=== PATIENT | female | born 1990 | race Two or more races ===

== ENCOUNTER 2024-11-08 06:23 | Emergency (ER) | payer MEDICAID, SELFPAY ==
[2024-11-08 06:24] VITALS: BMI 39.3
[2024-11-08 06:57] VITALS: BP 158/80; PULSE 69; RESP 17; TEMP 37; O2SAT 99
--- NOTE | 2024-11-08 07:14 | XR_ITS ---
Examination: Abdomen sonogram, Limited Date and time of exam: November 08, 2024 0727 hours INDICATIONS: Onset right upper abdominal pain and vomiting today, history cholelithiasis Technique: Real-time mendoza scale transabdominal sonographic images of the upper abdomen obtained. Findings: Multiple gallstones Gallbladder wall 0.29 cm no edema Common bile duct 0.4 cm Pancreatic head 3.6 cm Liver 15.6 cm fatty infiltration no focal liver lesions Normal hepatopedal portal venous flow Patent IVC IMPRESSION: Cholelithiasis, borderline gallbladder wall thickening No common bile duct stones Pancreatic head prominent, clinical correlation advised As clinically warranted, MRCP follow-up would exclude cholecystitis as well as pancreatitis
[2024-11-08] MEDS: ONDANSETRON ODT 4 MG TABRAP PO (07:21)
[2024-11-08] MEDS: HYDROcodone/APAP 5/325 TABLET 1 TAB PO (07:21)
--- NOTE | 2024-11-08 08:07 | PD.EDRME ---
Rapid Medical Screening Exam RME Arrival date/time: 11/08/24 06:23 This is a 34-year-old female presents to the emergency department with complaints of right upper quadrant abdominal pain x 2 days. + Nausea vomiting I have greeted and performed a focused initial assessment of this patient. Initial appropriate labs ordered at this time. A comprehensive ED assessment and evaluation of the patient and analysis of all test and completion of medical decision making process will be conducted by additional ED provider. Chief Complaint: Abdominal Pain Time Seen by Provider: 11/08/24 06:33 Vital signs: Vital Signs Temperature 98.6 F 11/08/24 06:57 Pulse Rate 69 11/08/24 06:57 Respiratory Rate 17 11/08/24 06:57 Blood Pressure 158/80 H 11/08/24 06:57 Pulse Oximetry (%) 99 11/08/24 06:57 Oxygen Delivery Method Room Air 11/08/24 06:57
[2024-11-08 08:34] LABS: Alanine Aminotransferase 19 U/L (10-49); Albumin, Serum 4.9 gm/dL (3.5-5.0); Albumin/Globulin Ratio 1.6 (1.2-2.2); Alkaline Phosphatase 92 U/L (46-116); Anion Gap 9 (7-16); Aspartate Amino Transferase 14 U/L (0-34); BUN/Creatinine Ratio 19 Ratio (12-20); Bilirubin,Total 0.7 mg/dL (0.3-1.2); Blood Urea Nitrogen 13 mg/dL (9-23); Calcium 9.4 mg/dL (8.3-10.6); Calcium (Corrected) 9.4 mg/dL (8.5-10.1); Carbon Dioxide 23.9 mMol/L (20.0-31.0); Chloride 105 mMol/L (98-107); Creatinine (Component) 0.7 mg/dL (0.6-1.3); Estimated Creatinine Clearance 121.1 mL/min (>60); Glucose 121 mg/dL (74-106); Lipase 55 U/L (12-53); Osmolality,Calculated 276 (275-295); Sodium 138 mMol/L (136-145); Total Protein 7.9 gm/dL (5.7-8.2); eGFR > 60 See Note
[2024-11-08 08:35] LABS: Basophils % (Auto) 0 % (0-2.5); Eosinophils % (Auto) 0 % (0-10); Hematocrit 40.8 % (36.0-46.0); Immature Granulocytes % (Auto) 0 % (0-0); Immature Granulocytes Auto 0.05 Thou/mm3 (0.00-0.00); Lymphocytes # (Auto) 1.5 Thou/mm3 (1.0-4.8); Lymphocytes % (Auto) 9 % (10-50); Mean Corpuscular HGB Conc 34.3 g/dl (31.0-37.0); Mean Corpuscular Hemoglobin 31.1 pg (25.0-35.0); Mean Corpuscular Volume 91 fL (80-100); Monocytes # (Auto) 0.6 Thou/mm3 (0.0-0.8); Monocytes % (Auto) 4 % (0-12); Neutrophils # (Auto) 13.8 Thou/mm3 (1.8-7.7); Neutrophils % (Auto) 86 % (37-80); Nucleated Red Blood Cell % 0 /100 WBC (0); Platelet Count 369 Thou/mm3 (140-440); RDW Standard Deviation 41.1 fL (36.4-46.3)
[2024-11-08 09:16] LABS: Collection Type, Urine Clean Catch
[2024-11-08 10:14] LABS: Bacteria,Urine 2+; Bilirubin,Urine Negative (Negative); Blood,Urine 1+ (Negative); Color,Urine Yellow (Lt Yel-Yel); Glucose, Urine Negative (Negative); Ketones,Urine Negative (Negative); Leukocyte Esterase,Urine Negative (Negative); Nitrite,Urine Negative (Negative); Protein,Urine 1+ (Neg - Trace); RBC,Urine 4 /hpf (0-3); Specific Gravity,Urine 1.029 (1.001-1.035); Squamous Epithelial Cell,Urine 6 /hpf (0-5); Urobilinogen,Urine Negative mg/dL (0.0-1.0); WBC,Urine 2 /hpf (0-5)
[2024-11-08 10:15] LABS: Clarity,Urine Hazy (Clear/Hazy)
[2024-11-08 10:16] LABS: HCG Qualitative,Urine Negative
[2024-11-08 10:17] VITALS: BP 160/90; PULSE 62; RESP 16; TEMP 37.1; O2SAT 98
--- NOTE | 2024-11-08 10:17 | PC.NURSE ---
Patient to er with c/o Right mid to RUQ pain with n/v/d x 3 days, patient received norco while awaiting in the lobby and states she did get some relief of pain, skin warm, dry and pink, chart up to be seen by ER provider in the main er, call light within reach.
[2024-11-08] MEDS: KETOROLAC INJ 30 MG/ML VIAL 15 MG IVP (11:31)
[2024-11-08] MEDS: MORPHINE SULF INJ 10 MG/ML VIAL 4 MG IVP (11:32)
[2024-11-08] MEDS: SODIUM CHLORIDE 0.9% 1000 ML 1,000 ML 999 ML IV (11:32)
--- NOTE | 2024-11-08 11:32 | EDNOTE_ITS ---
ED Abdominal Pain E/[facility] General Chief Complaint: Abdominal Pain Stated complaint: EPIGASTRIC PAIN/BACK PAIN/ VOMITING X 1DAY Time seen by provider: 11/08/24 06:33 Arrival date/time: 11/08/24 06:23 RME / HPI E / HPI narrative: 11/08/24 06:23 This is a 34-year-old female presents to the emergency department with complaints of right upper quadrant abdominal pain x 2 days. + Nausea vomiting I have greeted and performed a focused initial assessment of this patient. Initial appropriate labs ordered at this time. A comprehensive ED assessment and evaluation of the patient and analysis of all test and completion of medical decision making process will be conducted by additional ED provider. DR. TATUM MAIN ED EVALUATION: [facility] and states for the last day she has had right upper quadrant pain. She states she had similar pain maybe a year ago but no medical evaluation. She has no fever vomiting diarrhea she has no other complaint or problem. She has no history of gallbladder issues. She is healthy otherwise. Related Data Allergies Allergy/AdvReac Type Severity Reaction Status Date / Time No Known Allergies Allergy Verified 01/23/19 11:29 Review of Systems Review of Systems Systems Reviewed: All systems reviewed, normal except as documented Narrative Review of Systems: GEN: No fever, no chills, no weight loss EYES: No discharge, no visual changes, no pain HEENT: No ear pain, no congestion, no sore throat PULM: No shortness of breath, no cough, no congestion CV: No chest pain, no dyspnea on exertion, no palpitations GI: No nausea, no vomiting, no diarrhea, + right upper quadrant pain, no constipation : No frequency, no urgency and no dysuria MUSC/SKEL: No joint pain, no back pain SKIN: No rash PSYCH: No hallucinations, no depression HEME/LYMPH: No easy bleeding or bruising tendencies NEURO: No weakness, no headache Past Medical History Surgical History SURGICAL: Positive Section Social History SMOKING STATUS: Never smoker SUBSTANCE USE: does not use ALCOHOL: Never ED Exam Narrative Physical exam: Physical Exam: General: The vital signs were reviewed. The patient is non-toxic, in no apparent distress and appears healthy with a patent airway, no respiratory distress and has no apparent circulatory problems. Head & Scalp: Normocephalic, atraumatic. Face: Appears normal and is without lesions, deformity. Ears: Left external pinna appears normal. Right external pinna appears normal. Eyes: The sclera is anicteric. No obvious photophobia. The Left and Right Orbit/Lid/Conjunctiva appears normal without swelling, discoloration or injection. Nose: The nose is without deformity, discharge or tenderness; Throat: Appears normal. The mucous membranes are pink and moist without exudates, redness or mass seen. The tongue appears normal. Neck: The neck is supple and no apparent mass or adenopathy. Chest: The chest wall is normal in size and symmetry and has no chest wall tenderness or crepitus. The patient displays normal ventilator effort without retractions, accessory muscle use and has adequate air movement bilaterally with no wheezes and no rales. Cardiovascular: Regular rate and rhythm; No murmurs, rubs, or gallops; Gastrointestinal: The abdomen appears normal. No obvious hernias or mass. The abdomen has obvious right upper quadrant tenderness otherwise remaining abdomen is soft and benign, non-distended, with no pain, no guarding and no rebound tenderness. Bowel sounds are present and normal sounding. No CVA tenderness. Genitourinary: Back/Spine: Normal Spektor nontender Extremities/Musculoskeletal/lymphatic: The bilateral upper and lower extremities are warm. There is no evidence of arterial insufficiency. There is no evidence of venous insufficiency/edema. The patient spontaneously moves bilateral upper and lower extremities with no pain and no limitation of movement. There is no apparent, injury or trauma. Skin: The skin is warm, dry and intact. No rashes. No petechia. No purpura. No abnormal bruising. The color is appropriate with no cyanosis. Mental status/Psychiatric: Mental status is appropriate for age. The patient has no apparent delusions, visual hallucinations, no apparent audible hallucinations. The patient has no apparent suicidal thoughts/ideation and no apparent homicidal thoughts/ideation. Neurological: The patient is awake, alert, interactive, cordial, cooperative and is oriented to name and situation. The patient follows commands and answers historical question with no impairment. There is no visual disturbance apparent. The pupils are equal and reactive bilaterally with normal eye movements and no diplopia The bilateral upper and lower extremities have normal strength, normal range of motion and normal functioning. The gait, station and balance appear to be baseline with no acute change Course Quality Measures none Orders Category Date Time Status US gall bladder Stat Exams 11/08/24 07:14 Completed CBC Stat Lab 11/08/24 07:53 Completed Comprehensive Metabolic Panel Stat Lab 11/08/24 07:53 Completed HCG Qualitative,Urine Stat Lab 11/08/24 08:16 Completed Lipase Stat Lab 11/08/24 07:53 Completed Urinalysis Stat Lab 11/08/24 08:16 Completed HYDROcodone*/APAP 5/325 [Weldon 5/325] Med 11/08/24 07:14 Discontinued 1 tab PO X1 ONE Ketorolac Inj [Toradol Inj] Med 11/08/24 11:22 Discontinued 15 mg IVP X1 ONE Morphine Inj Med 11/08/24 11:22 Discontinued 4 mg IVP X1 ONE Ondansetron Odt [Zofran Odt] Med 11/08/24 07:14 Discontinued 4 mg PO X1 ONE Sodium Chloride 0.9% 1000 ml [Ns] 1,000 ml Med 11/08/24 11:22 Discontinued IV 999 mls/hr Reevaluation(s) Reevaluation #1: Patient ate and walked with no complaints; patient without any distress. Patient remains clinically stable throughout the emergency department visit. Re- assessment at the time of disposition demonstrates that the patient is in no acute distress. We reviewed all the results, analysis, and treatment plans. Patient is amenable to discharge. Strict return precautions were outlined. Patient was discharged in stable condition. Time: 14:52 Vital Signs Vital signs: Vital Signs Temperature 98.6 F 11/08/24 06:57 Pulse Rate 69 11/08/24 06:57 Respiratory Rate 17 11/08/24 06:57 Blood Pressure 158/80 H 11/08/24 06:57 Pulse Oximetry (%) 99 11/08/24 06:57 Oxygen Delivery Method Room Air 11/08/24 06:57 Abdominal Pain MDM MDM Narrative MDM Narrative:: I, Sarah Duran, am scribing for and in the presence of Dr. Tatum. The gallbladder has gallstones. The gallbladder wall is a little thickened but there is no pericholecystic fluid seen. Laboratory studies show a white count of 16,000 hemoglobin of 14.0 platelet count of 369,000 with a left shift of 86%. Electrolytes reveal sodium 136 potassium 4 chloride 105 CO2 23.9 BUN 13 creatinine 0.7 glucose 121 total bili is 0.7 AST 14 ALT is 19. Urinalysis is not clean-catch specimen with 2 white blood cells. [facility] and then brought back from the waiting room and at my evaluation at approximately 1045 hrs. the patient is still having right upper quadrant tenderness. Because of this we put an IV and will give us more pain medicine we will reevaluate. She does have an elevated white count . On recheck patient smiling feeling much better she was advised follow-up with her doctor get referred to a surgeon come back if getting worse and understands that she may have recurring bowels and avoid fatty foods. Patient data External records reviewed:: [facility] previous records (Reviewed last ED visit dated 01/16/24, discharged with the following: Constipation) Clinical information provided by:: patient Social determinants that could affect healthcare access:: none Patient has the following chronic illnesses:: Section How is presenting disease/condition affected by chronic disease/condition?: no chronic disease Evaluation data The following diagnostics were reviewed and interpreted by me:: lab results and radiology exam(s) Lab and/or radiology exams considered but not ordered:: none Interpretation Summary: See above under MDM narrative. RADIOLOGY Procedure(s): US gall bladder Accession Number(s): [id number] cc: Karthik Arciniega MD; Ganesh Zamudio MD; Karena Moralez~ Examination: Abdomen sonogram, Limited Date and time of exam: November 08, 2024 0727 hours INDICATIONS: Onset right upper abdominal pain and vomiting today, history cholelithiasis Technique: Real-time mendoza scale transabdominal sonographic images of the upper abdomen obtained. Findings: Multiple gallstones Gallbladder wall 0.29 cm no edema Common bile duct 0.4 cm Pancreatic head 3.6 cm Liver 15.6 cm fatty infiltration no focal liver lesions Normal hepatopedal portal venous flow Patent IVC IMPRESSION: Cholelithiasis, borderline gallbladder wall thickening No common bile duct stones Pancreatic head prominent, clinical correlation advised As clinically warranted, MRCP follow-up would exclude cholecystitis as well as pancreatitis Dictated By: Ganesh Zamudio MD Medications / Prescriptions Medications or Prescriptions considered but not ordered:: none Medication administrations:: Medication Administration History Discontinued Medications Hydrocodone Bitart/Acetaminophen (Hydrocodone/Apap 5/325 Tablet) 1 tab PO X1 ONE Stop: 11/08/24 07:15 Last Admin: 11/08/24 07:21 Dose: 1 tab Documented By: GREG Sodium Chloride (Ns) 1,000 mls @ 999 mls/hr IV .Q1H1M ONE Stop: 11/08/24 12:22 Last Infusion: 11/08/24 12:39 Dose: Infused Documented By: Admin: 11/08/24 11:32 Dose: 999 mls/hr Documented By: SAVAGE Ketorolac Tromethamine (Ketorolac Inj 30 Mg/Ml Vial) 15 mg IVP X1 ONE Stop: 11/08/24 11:23 Last Admin: 11/08/24 11:31 Dose: 15 mg Documented By: SAVAGE Morphine Sulfate (Morphine Sulf Inj 10 Mg/Ml Vial) 4 mg IVP X1 ONE Stop: 11/08/24 11:23 Last Admin: 11/08/24 11:32 Dose: 4 mg Documented By: SAVAGE Ondansetron HCl (Ondansetron Odt 4 Mg Tabrap) 4 mg PO X1 ONE Stop: 11/08/24 07:15 Last Admin: 11/08/24 07:21 Dose: 4 mg Documented By: GREG see above Consultations Consultation(s) initiated? (list below): No Diagnosis Differential diagnosis abdominal pain: abdominal pain, constipation and other (cholelithiasis vs cholecystitis) Most likely diagnosis given after review of the tests above:: Cholelithiasis Leukocytosis Right upper quadrant abdominal pain Admission Indicated Admission indicated?: not indicated Admission Request Was there a request for admission?: No Disposition Plan Disposition Plan: Discharge Discharge Attestation Discharge Attestation: The patient and all family members were given an opportunity to ask questions and understood the discharge instructions. Discharge instructions specifically effects, indications for sooner follow up or return to the emergency department, and the expected course of current diagnosis. Patient condition: Stable Discharge Plan Plan Patient Disposition: HOME (Self Care) Prescriptions/Referrals Referrals: Karthik Arciniega MD [Primary Care Provider] - In 1 week Problem List Clinical Impression: Cholelithiasis, Leukocytosis, Right upper quadrant abdominal pain Patient/Caregiver Discharge Instructions Education Materials: ED Gallstones with Biliary Colic Additional Instructions: It appears you have gallstones causing her right upper quadrant abdominal pain. Please avoid fatty foods as this will stimulate pain more frequently. If your pain returns and gets worse and you cannot tolerate please return for reevaluation. It is important to see your regular doctor get referred to a surgeon as you will most likely have recurring bouts of this problem and if you are turning yellow and having fever with increasing right upper quadrant pain and/or having intractable pain in the right upper quadrant then please return for reevaluation. Print Language: Mongolian Stand Alone Forms: Patient Portal Info Letter
[2024-11-08 14:19] VITALS: BP 155/90; PULSE 78; RESP 16; TEMP 37.1; O2SAT 99
--- NOTE | 2024-11-08 14:31 | PC.NURSE ---
Road tested patient around nurses station, patient had no c/o n/vomiting or dizziness, will notify dr. Tatum. Also, patient provided with gary crackers and water for food tolerance test.
--- NOTE | 2024-11-08 14:52 | PC.NURSE ---
ate crackers without difficulty and dr. canada informed
--- NOTE | 2024-11-08 14:54 | PC.NURSE ---
Patient able to eat gary crackers and water with out n/vomiting
== END 2024-11-08 15:39 | disposition home or self-care (01) ==
PROVIDERS: Nurse Practitioner Primary Care; Emergency Provider Emergency Medicine; PCP Family Medicine
DX: K80.70 Calculus of gallbladder and bile duct without cholecystitis without obstruction (principal)
CPT/HCPCS: 36415; 76705; 80053; 81001; 81025; 83690; 85025; 96361; 96374; 96375; 99284; J1885; J2270; J7030; Q0162; A9270